=== PATIENT | male | born 1995 | race Caucasian/White ===

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

== ENCOUNTER 2017-03-25 06:24 | Day surgery (SDC) | payer MEDICAID ==
[~2017-03-25] VITALS: Ht 180.3 cm; Wt 68.0 kg
[2017-03-25] MEDS ORDERED: LR 1,000 ML IV ONE (06:30)
[2017-03-25] MEDS ORDERED: IBUP-1022 PO (07:16)
[2017-03-25] MEDS ORDERED: HYDR-3713 PO (07:17)
[2017-03-25] MEDS ORDERED: LIDOCAINE 2% W/ EPINEPHRINE 1.7 ML DENTAL INJ As Ordered ONE (07:34)
[2017-03-25] MEDS ORDERED: fentaNYL 250 MCG/5 ML INJECTION (J3010) As Ordered ONE (07:51)
[2017-03-25] MEDS ORDERED: GLYCOPYRROLATE INJ 0.2 MG/ML 2 ML VIAL As Ordered ONE (07:52)
[2017-03-25] MEDS ORDERED: NEOSTIGMINE 1MG/ML 5 ML SYRINGE (J2710) As Ordered ONE (07:52)
[2017-03-25] MEDS ORDERED: MIDAZOLAM INJ 2 MG/2 ML VIAL (J2250) As Ordered ONE (07:52)
[2017-03-25] MEDS ORDERED: dexameTHASONE 4 MG/ML 1ML VIAL (J1100) As Ordered ONE (07:52)
[2017-03-25] MEDS ORDERED: METOCLOPRAMIDE INJ 10MG/2ML VIAL (J2765) As Ordered ONE (07:52)
[2017-03-25] MEDS ORDERED: LIDOCAINE 2% INJ 100 MG/5 ML SDV (FOR ANES.) As Ordered ONE (07:52)
[2017-03-25] MEDS ORDERED: ROCURONIUM BROMIDE 50 MG/5 ML VIAL/SYRINGE As Ordered ONE (07:52)
[2017-03-25] MEDS ORDERED: PROPOFOL 200 MG/20 ML VIAL As Ordered ONE (07:52)
[2017-03-25] MEDS ORDERED: ONDANSETRON 4MG/2ML VIAL (J2405) As Ordered ONE ×2 (07:52→08:41)
[2017-03-25] MEDS ORDERED: PERCOCET 5MG/325MG TAB As Ordered ONE (08:41)
[2017-03-25] MEDS ORDERED: METOCLOPRAMIDE INJ 10MG/2ML VIAL (J2765) IV PRN (09:00)
[2017-03-25] MEDS ORDERED: fentaNYL 100 MCG/2 ML INJECTION (J3010) IV PRN (09:00)
[2017-03-25] MEDS ORDERED: PERCOCET 5MG/325MG TAB PO PRN (09:00)
[2017-03-25] MEDS ORDERED: LR 1,000 ML IV SCH ×2 (09:00)
[2017-03-25] MEDS ORDERED: ONDANSETRON 4MG/2ML VIAL (J2405) IV PRN (09:00)
[2017-03-25 10:30] VITALS: BP 140/72
--- NOTE | 2017-03-27 13:50 | RO ---
DATE OF PROCEDURE: 03/25/2017 PREOPERATIVE DIAGNOSES: 1. Malposed teeth numbers 1 and 16. 2. Partial bony impacted teeth numbers 17 and 32. POSTOPERATIVE DIAGNOSES: 1. Malposed teeth numbers 1 and 16. 2. Partial bony impacted teeth numbers 17 and 32. PROCEDURE PERFORMED: Surgical removal of teeth numbers 1, 16, 17 and 32. SURGEON: Jose G Sandy DDS [employer]: ANESTHESIA: General nasoendotracheal. INDICATIONS: This patient is a 21-year-old male who presents on referral from the [facility] for removal of his third molar teeth. Patient with a past history of autism and anxiety, felt necessary to be performed in the operating room under general anesthesia. DESCRIPTION OF PROCEDURE/NARRATIVE SUMMARY: The patient was brought to the operating room per anesthesia, placed supine upon the OR table wherein general nasoendotracheal anesthesia was undertaken without difficulty. After the usual sterile prep and drape for the intraoral procedure was performed, a throat pack was placed. 2% xylocaine with 1:100,000 epinephrine was injected by way of infiltration fashion, approximately 4 mL along the surgical sites. First, attention to the left mandible, a #15 scalpel blade used to make a full thickness reverse buccal hockey stick incision, carried from the left external oblique ridge forward to the area of the first molar. A buccal flap was then raised with a periosteal elevator exposing the buccal bone support over top of the impacted crown. Chappell drill and copious sterile saline was used to make a buccal bone trench exposing the impacted tooth crown. The crown and tooth was then elevated and delivered without difficulty. The socket was then curetted lightly. The lingual cortex was noted to be intact. The socket area was copiously irrigated with saline and closed with #3-0 gut interrupted suture. Attention then turned to tooth 16, left maxillary third molar. Again, a #15 blade used to make a full thickness incision, carried from the left tuberosity forward to the area of the first molar and the buccal sulcular gingiva. Buccal flap was then raised with a periosteal elevator exposing the buccal bone support overlying the tooth. Buccal bone was then removed judiciously as necessary for access and to mobilize the tooth. The tooth was then elevated and delivered. The bone was smoothed, socket curetted and the tissues closed with #3-0 gut interrupted suture. Attention then turned to the right mandible and the right maxilla tooth, number 32 the right mandibular tooth again was performed in the same fashion as on tooth number 17. Again, a #15 blade used to make a full thickness mucoperiosteal incision, carried from the right external oblique ridge of the mandible forward to the area of the first molar and the buccal sulcular gingiva. Buccal flap raised with periosteal elevator. A Chappell drill and copious sterile saline used to make a buccal bone trench exposing the impacted tooth crown. The tooth was then elevated and delivered without difficulty. Socket curetted, irrigated and then closed with #3-0 gut interrupted suture. Again, the lingual cortex was noted to be intact. Attention lastly turned to tooth number 1. Again, it was removed in the same fashion as 16. A #15 blade was used to make a full thickness incision, carried from the right tuberosity forward to the area of the first molar. Buccal flap was then raised with a periosteal elevator exposing the buccal bone. Buccal bone was judiciously removed as necessary for access and to mobilize the tooth. The tooth was then elevated and delivered with an upper forceps. Again, the bone was smoothed, socket curetted and closed with #3-0 gut interrupted suture after irrigation. At the termination of the procedure, the oropharynx was inspected and found to be free of debris. The throat pack was removed and the patient was awakened per anesthesia. ESTIMATED BLOOD LOSS: Was approximately 20 mL. FLUIDS: 700 mL of crystalloid solution. COUNTS: Needle and sponge counts were correct. SPECIMENS: The teeth were sent for identification only to pathology. DISPOSITION: The patient was extubated in the operating room and taken to the recovery room breathing spontaneously in stable condition.
== END 2017-03-25 10:36 | disposition home or self-care (01) ==
LOC: M SDC 06:24
PROVIDERS: ATTEND Dentist Oral and Maxillofacial Surgery
DX: K00.6 Disturbances in tooth eruption (principal); K01.1 Impacted teeth; F84.0 Autistic disorder; K59.00 Constipation, unspecified; F41.9 Anxiety disorder, unspecified; Z88.0 Allergy status to penicillin
CPT/HCPCS: 88300; D7220; D7230; D9223; J1100; J2250; J2405; J2710; J2765; J3010

== ENCOUNTER → 2019-09-21 | Outpatient (CLI) | payer MEDICAID ==
[~2019-09-21] MED LIST: HYDR-3713 PO; IBUP-1022 PO
[2019-09-21 09:33] LABS: BASO # 0.1 10^3/uL (0.0-0.2); BASO % 0.8 % (0.0-1.0); EOS # 0.5 10^3/uL (0.0-0.5); EOS % 7.1 % (0.0-3.0); HEMATOCRIT 48.9 % (42.0-52.0); HEMOGLOBIN 16.1 g/dl (13.5-17.5); LYMPH # 1.6 10^3/uL (1.5-5.0); LYMPH % 21.2 % (24.0-44.0); MEAN CORPUSCULAR HEMOGLOBIN 31.9 pg (27.0-33.0); MEAN CORPUSCULAR HGB CONC 32.9 g/dl (32.0-36.5); MEAN CORPUSCULAR VOLUME 96.8 fl (80.0-96.0); MONO # 0.6 10^3/uL (0.0-0.8); MONO % 8.6 % (0.0-5.0); NEUTROPHILS # 4.6 10^3/uL (1.5-8.5); PLATELET COUNT, AUTOMATED 281 10^3/uL (150-450); RED BLOOD COUNT 5.05 10^6/uL (4.30-6.10); WHITE BLOOD COUNT 7.5 10^3/uL (4.0-10.0)
[2019-09-21 10:10] LABS: ALT/SGPT 25 U/L (12-78); BILIRUBIN,TOTAL 0.5 MG/DL (0.2-1.0); BLOOD UREA NITROGEN 13 MG/DL (7-18); CALCIUM LEVEL 8.8 MG/DL (8.5-10.1); CARBON DIOXIDE LEVEL 29 MEQ/L (21-32); CHLORIDE LEVEL 105 MEQ/L (98-107); CHOLESTEROL LEVEL 177 MG/DL (<200); CHOLESTEROL RISK RATIO 5.709 (<5); CREATININE FOR GFR 1.08 MG/DL (0.70-1.30); FREE T4 1.08 NG/DL (0.76-1.46); GLOMERULAR FILTRATION RATE > 60.0 (>60); GLUCOSE, FASTING 94 MG/DL (70-100); HDL CHOLESTEROL 31 MG/DL (>40); LDL CHOLESTEROL 125 MG/DL (<100); NON-HDL-C 146 MG/DL; POTASSIUM SERUM 4.3 MEQ/L (3.5-5.1); SODIUM LEVEL 139 MEQ/L (136-145); TOTAL 25(OH) VITAMIN D 21.8 NG/ML (30.0-100.0); TOTAL PROTEIN 7.4 GM/DL (6.4-8.2); TRIGLYCERIDES LEVEL 107 MG/DL (<150)
== END ==
LOC: M LAB 08:04
PROVIDERS: ATTEND Nurse Practitioner Family
DX: Z00.01 Encounter for general adult medical examination with abnormal findings (principal); Z13.9 Encounter for screening, unspecified; H61.23 Impacted cerumen, bilateral; F84.5 Asperger's syndrome

== ENCOUNTER → 2021-01-09 | Outpatient (REF) | payer MEDICAID ==
[2021-01-09 16:25] LABS: BASO # 0.1 10^3/uL (0.0-0.2); BASO % 0.8 % (0.0-1.0); EOS # 0.4 10^3/uL (0.0-0.5); HEMATOCRIT 48.7 % (42.0-52.0); HEMOGLOBIN 15.9 g/dl (13.5-17.5); LYMPH # 1.9 10^3/uL (1.5-5.0); LYMPH % 31.2 % (24.0-44.0); MEAN CORPUSCULAR HEMOGLOBIN 31.7 pg (27.0-33.0); MEAN CORPUSCULAR HGB CONC 32.6 g/dl (32.0-36.5); MEAN CORPUSCULAR VOLUME 97.2 fl (80.0-96.0); MONO # 0.4 10^3/uL (0.0-0.8); MONO % 7.4 % (2.0-8.0); NEUTROPHILS # 3.2 10^3/uL (1.5-8.5); NEUTROPHILS % 53.4 % (36.0-66.0); PLATELET COUNT, AUTOMATED 286 10^3/uL (150-450); RED BLOOD COUNT 5.01 10^6/uL (4.30-6.10)
[2021-01-09 18:54] LABS: ALBUMIN 3.9 GM/DL (3.2-5.2); ALT/SGPT 28 U/L (12-78); BILIRUBIN,TOTAL 0.5 MG/DL (0.2-1.0); BLOOD UREA NITROGEN 16 MG/DL (7-18); CARBON DIOXIDE LEVEL 28 MEQ/L (21-32); CHLORIDE LEVEL 104 MEQ/L (98-107); CHOLESTEROL LEVEL 189 MG/DL (<200); CHOLESTEROL RISK RATIO 7.269 (<5); CREATININE FOR GFR 1.09 MG/DL (0.70-1.30); GLOMERULAR FILTRATION RATE > 60.0 (>60); GLUCOSE, FASTING 165 MG/DL (70-100); HDL CHOLESTEROL 26 MG/DL (>40); LDL CHOLESTEROL 118 MG/DL (<100); NON-HDL-C 163 MG/DL; POTASSIUM SERUM 4.1 MEQ/L (3.5-5.1); SODIUM LEVEL 140 MEQ/L (136-145); TOTAL PROTEIN 7.2 GM/DL (6.4-8.2); TRIGLYCERIDES LEVEL 224 MG/DL (<150)
== END ==
LOC: M LAB REF 16:08
PROVIDERS: ATTEND Physician Assistant Medical
DX: Z13.228 Encounter for screening for other metabolic disorders (principal)

== ENCOUNTER → 2022-01-16 | Outpatient (REF) | payer MEDICAID ==
[2022-01-16 13:06] LABS: BASO # 0.1 10^3/uL (0.0-0.2); BASO % 1.1 % (0.0-1.0); EOS # 0.6 10^3/uL (0.0-0.5); EOS % 9.7 % (0.0-3.0); HEMOGLOBIN 14.9 g/dl (13.5-17.5); LYMPH # 2.3 10^3/uL (1.5-5.0); LYMPH % 35.8 % (24.0-44.0); MEAN CORPUSCULAR HEMOGLOBIN 31.4 pg (27.0-33.0); MEAN CORPUSCULAR HGB CONC 31.7 g/dl (32.0-36.5); MEAN CORPUSCULAR VOLUME 99.2 fl (80.0-96.0); MONO # 0.6 10^3/uL (0.0-0.8); MONO % 8.7 % (2.0-8.0); NEUTROPHILS # 2.9 10^3/uL (1.5-8.5); NEUTROPHILS % 44.4 % (36.0-66.0); PLATELET COUNT, AUTOMATED 278 10^3/uL (150-450); RED BLOOD COUNT 4.74 10^6/uL (4.30-6.10); WHITE BLOOD COUNT 6.4 10^3/uL (4.0-10.0)
[2022-01-16 13:29] LABS: ALBUMIN 3.6 GM/DL (3.2-5.2); ALT/SGPT 33 U/L (12-78); BILIRUBIN,TOTAL 0.6 MG/DL (0.2-1.0); BLOOD UREA NITROGEN 14 MG/DL (7-18); CALCIUM LEVEL 9.3 MG/DL (8.5-10.1); CARBON DIOXIDE LEVEL 28 MEQ/L (21-32); CHLORIDE LEVEL 109 MEQ/L (98-107); CHOLESTEROL LEVEL 166 MG/DL (<200); CHOLESTEROL RISK RATIO 7.217 (<5); CREATININE FOR GFR 1.18 MG/DL (0.70-1.30); GLOMERULAR FILTRATION RATE > 60.0 (>60); GLUCOSE, FASTING 174 MG/DL (70-100); HDL CHOLESTEROL 23 MG/DL (>40); LDL CHOLESTEROL 90 MG/DL (<100); NON-HDL-C 143 MG/DL; POTASSIUM SERUM 4.4 MEQ/L (3.5-5.1); SODIUM LEVEL 143 MEQ/L (136-145); TOTAL PROTEIN 6.7 GM/DL (6.4-8.2); TRIGLYCERIDES LEVEL 264 MG/DL (<150)
[2022-01-16 14:02] LABS: HEMOGLOBIN A1c 7.5 %
== END ==
LOC: M LAB REF 11:47
PROVIDERS: ATTEND Physician Assistant Medical
DX: Z13.89 Encounter for screening for other disorder (principal); R73.01 Impaired fasting glucose; Z13.228 Encounter for screening for other metabolic disorders

== ENCOUNTER → 2022-07-16 | Outpatient (REF) | payer MEDICAID ==
[2022-07-16 19:00] LABS: BLOOD UREA NITROGEN 16 MG/DL (9-23); CALCIUM LEVEL 8.8 MG/DL (8.5-10.1); CARBON DIOXIDE LEVEL 27 MMOL/L (20-31); CHLORIDE LEVEL 102 MMOL/L (98-107); CREATININE FOR GFR 1.03 MG/DL (0.70-1.30); CREATININE, URINE 122.2 MG/DL; GLOMERULAR FILTRATION RATE > 60.0 (>60); GLUCOSE, FASTING 144 MG/DL (60-100); MALB URINE SIEMENS < 3.0 MG/DL; MAU/CREAT RATIO 2.4 MCG/MG (0.0-30.0); POTASSIUM SERUM 4.2 MMOL/L (3.5-5.1); SODIUM LEVEL 137 MMOL/L (136-145)
== END ==
LOC: M LAB REF 17:14
PROVIDERS: ATTEND Physician Assistant Medical
DX: R73.01 Impaired fasting glucose (principal); Z13.220 Encounter for screening for lipoid disorders; Z13.228 Encounter for screening for other metabolic disorders

== ENCOUNTER → 2023-01-15 | Outpatient (REF) | payer MEDICAID ==
[2023-01-15 09:38] LABS: BASO # 0.1 10^3/uL (0.0-0.2); EOS # 1.2 10^3/uL (0.0-0.5); EOS % 15.9 % (0.0-3.0); HEMATOCRIT 46.4 % (42.0-52.0); HEMOGLOBIN 15.5 g/dl (13.5-17.5); LYMPH # 2.5 10^3/uL (1.5-5.0); LYMPH % 32.4 % (24.0-44.0); MEAN CORPUSCULAR HGB CONC 33.4 g/dl (32.0-36.5); MEAN CORPUSCULAR VOLUME 95.7 fl (80.0-96.0); MONO # 0.6 10^3/uL (0.0-0.8); MONO % 7.9 % (2.0-8.0); NEUTROPHILS # 3.3 10^3/uL (1.5-8.5); NEUTROPHILS % 42.4 % (36.0-66.0); PLATELET COUNT, AUTOMATED 294 10^3/uL (150-450); RED BLOOD COUNT 4.85 10^6/uL (4.30-6.10); WHITE BLOOD COUNT 7.8 10^3/uL (4.0-10.0)
[2023-01-15 09:43] LABS: ALBUMIN 3.9 G/DL (3.2-5.2); ALKALINE PHOSPHATASE 87 U/L (46-116); ALT/SGPT 21 U/L (7.0-40); AST/SGOT 8 U/L (<34); BILIRUBIN,TOTAL 0.7 MG/DL (0.3-1.2); BLOOD UREA NITROGEN 18 MG/DL (9-23); CALCIUM LEVEL 9.7 MG/DL (8.5-10.1); CARBON DIOXIDE LEVEL 27 MMOL/L (20-31); CHLORIDE LEVEL 104 MMOL/L (98-107); CHOLESTEROL LEVEL 170 MG/DL (<200); CHOLESTEROL RISK RATIO 6.46 (<5); CREATININE FOR GFR 1.09 MG/DL (0.70-1.30); GLOMERULAR FILTRATION RATE > 60.0 (>60); GLUCOSE, FASTING 103 MG/DL (60-100); HDL CHOLESTEROL 26.3 MG/DL (>40); LDL CHOLESTEROL 104.7 MG/DL (<100); NON-HDL-C 143.7 MG/DL; POTASSIUM SERUM 4.3 MMOL/L (3.5-5.1); SODIUM LEVEL 138 MMOL/L (136-145); TOTAL PROTEIN 6.7 G/DL (5.7-8.2); TRIGLYCERIDES LEVEL 195 MG/DL (<150)
[2023-01-15 09:55] LABS: HEMOGLOBIN A1c 5.8 % (4.0-6.0)
== END ==
LOC: M LAB REF 09:06
PROVIDERS: ATTEND Physician Assistant Medical
DX: Z13.228 Encounter for screening for other metabolic disorders (principal); Z13.220 Encounter for screening for lipoid disorders; Z13.89 Encounter for screening for other disorder

== ENCOUNTER → 2024-02-19 | Outpatient (REF) | payer MEDICAID ==
[2024-02-19 17:04] LABS: BASO # 0.1 10^3/uL (0.0-0.2); EOS # 0.6 10^3/uL (0.0-0.5); EOS % 8.1 % (0.0-3.0); HEMATOCRIT 45.1 % (42.0-52.0); HEMOGLOBIN 15.4 g/dl (13.5-17.5); LYMPH # 2.2 10^3/uL (1.5-5.0); LYMPH % 32.3 % (24.0-44.0); MEAN CORPUSCULAR HEMOGLOBIN 32.4 pg (27.0-33.0); MEAN CORPUSCULAR HGB CONC 34.1 g/dl (32.0-36.5); MEAN CORPUSCULAR VOLUME 94.9 fl (80.0-96.0); MONO # 0.5 10^3/uL (0.0-0.8); MONO % 7.4 % (2.0-8.0); NEUTROPHILS # 3.5 10^3/uL (1.5-8.5); NEUTROPHILS % 51.1 % (36.0-66.0); PLATELET COUNT, AUTOMATED 289 10^3/uL (150-450); RED BLOOD COUNT 4.75 10^6/uL (4.30-6.10); WHITE BLOOD COUNT 6.9 10^3/uL (4.0-10.0)
[2024-02-19 17:35] LABS: ALBUMIN 3.9 G/DL (3.2-5.2); ALKALINE PHOSPHATASE 79 U/L (46-116); ALT/SGPT 22 U/L (7.0-40); AST/SGOT < 8 U/L (<34); BILIRUBIN,TOTAL 0.5 MG/DL (0.3-1.2); BLOOD UREA NITROGEN 16 MG/DL (9-23); CALCIUM LEVEL 9.3 MG/DL (8.5-10.1); CARBON DIOXIDE LEVEL 28 MMOL/L (20-31); CHLORIDE LEVEL 105 MMOL/L (98-107); CHOLESTEROL LEVEL 183 MG/DL (<200); CHOLESTEROL RISK RATIO 7.23 (<5); CREATININE FOR GFR 0.92 MG/DL (0.70-1.30); GLOMERULAR FILTRATION RATE > 60.0 (>60); GLUCOSE, FASTING 108 MG/DL (60-100); HDL CHOLESTEROL 25.3 MG/DL (>40); LDL CHOLESTEROL 87.5 MG/DL (<100); NON-HDL-C 157.7 MG/DL; POTASSIUM SERUM 4.3 MMOL/L (3.5-5.1); SODIUM LEVEL 139 MMOL/L (136-145); TOTAL PROTEIN 6.7 G/DL (5.7-8.2); TRIGLYCERIDES LEVEL 351 MG/DL (<150)
[2024-02-19 17:47] LABS: HEMOGLOBIN A1c 5.8 % (4.0-6.0)
== END ==
LOC: M LAB REF 16:25
PROVIDERS: ATTEND Physician Assistant Medical
DX: F84.0 Autistic disorder (principal); E11.9 Type 2 diabetes mellitus without complications; E78.00 Pure hypercholesterolemia, unspecified

== ENCOUNTER → 2024-08-25 | Outpatient (REF) | payer MEDICAID ==
[2024-08-25 18:21] LABS: BLOOD UREA NITROGEN 17 MG/DL (9-23); CALCIUM LEVEL 9.1 MG/DL (8.5-10.1); CARBON DIOXIDE LEVEL 31 MMOL/L (20-31); CHLORIDE LEVEL 107 MMOL/L (98-107); CREATININE FOR GFR 1.03 MG/DL (0.70-1.30); GLOMERULAR FILTRATION RATE > 60.0 (>60); GLUCOSE, FASTING 66 MG/DL (60-100); POTASSIUM SERUM 4.4 MMOL/L (3.5-5.1); SODIUM LEVEL 142 MMOL/L (136-145)
[2024-08-25 18:25] LABS: HEMATOCRIT 46.7 % (42.0-52.0); HEMOGLOBIN 15.3 g/dl (13.5-17.5); MEAN CORPUSCULAR HEMOGLOBIN 32.1 pg (27.0-33.0); MEAN CORPUSCULAR HGB CONC 32.8 g/dl (32.0-36.5); MEAN CORPUSCULAR VOLUME 98.1 fl (80.0-96.0); PLATELET COUNT, AUTOMATED 275 10^3/uL (150-450); RED BLOOD COUNT 4.76 10^6/uL (4.30-6.10); WHITE BLOOD COUNT 8.7 10^3/uL (4.0-10.0)
[2024-08-25 18:54] LABS: HEMOGLOBIN A1c 5.4 % (4.0-6.0)
== END ==
LOC: M LAB REF 16:36
PROVIDERS: ATTEND Physician Assistant Medical
DX: E11.9 Type 2 diabetes mellitus without complications (principal); E78.00 Pure hypercholesterolemia, unspecified; E66.09 Other obesity due to excess calories

== ENCOUNTER → 2025-02-24 | Outpatient (REF) | payer MEDICAID ==
[2025-02-24 13:21] LABS: BASO # 0.1 10^3/uL (0.0-0.2); BASO % 0.9 % (0.0-1.0); EOS # 0.3 10^3/uL (0.0-0.5); EOS % 4.2 % (0.0-3.0); LYMPH # 2.1 10^3/uL (1.5-5.0); LYMPH % 32.8 % (24.0-44.0); MONO # 0.6 10^3/uL (0.0-0.8); MONO % 9.2 % (2.0-8.0); NEUTROPHILS # 3.4 10^3/uL (1.5-8.5); NEUTROPHILS % 52.6 % (36.0-66.0); PLATELET COUNT, AUTOMATED 274 10^3/uL (150-450)
[2025-02-24 13:33] LABS: ALT/SGPT 25 U/L (7.0-40); AST/SGOT 23 U/L (<34); CALCIUM LEVEL 8.8 MG/DL (8.5-10.1); CARBON DIOXIDE LEVEL 25 MMOL/L (20-31); CHLORIDE LEVEL 104 MMOL/L (98-107); CHOLESTEROL LEVEL 199 MG/DL (<200); CHOLESTEROL RISK RATIO 6.01 (<5); CREATININE FOR GFR 1.10 MG/DL (0.70-1.30); GLOMERULAR FILTRATION RATE > 90.0 (>60); LDL CHOLESTEROL 153.1 MG/DL (<100); NON-HDL-C 165.9 MG/DL; POTASSIUM SERUM 4.1 MMOL/L (3.5-5.1); SODIUM LEVEL 141 MMOL/L (136-145); TRIGLYCERIDES LEVEL 64 MG/DL (<150)
[2025-02-24 14:03] LABS: ESTIMATED AVERAGE GLUCOSE 126.0 MG/DL (60-110)
[2025-02-24 14:09] LABS: CREATININE, URINE 243.9 MG/DL; MALB URINE SIEMENS 7.0 MG/L; MAU/CREAT RATIO 2.8 MCG/MG (0.0-30.0)
== END ==
LOC: M LAB REF 12:10
PROVIDERS: ATTEND Physician Assistant Medical
DX: Z13.228 Encounter for screening for other metabolic disorders (principal); E11.9 Type 2 diabetes mellitus without complications; E78.00 Pure hypercholesterolemia, unspecified; Z79.84 Long term (current) use of oral hypoglycemic drugs